=== PATIENT | female | born 2000 | race Caucasian/White ===

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

== ENCOUNTER 2022-11-25 12:23 | Emergency (ER) | payer OTHER, SELFPAY ==
[2022-11-25 12:25] VITALS: BP 127/81; PULSE 77; RESP 18; TEMP 36.2; O2SAT 100; BMI 22.6
--- NOTE | 2022-11-25 12:47 | EDS_ITS ---
HPI HPI - Female History of Present Illness Chief Complaint: Vag Bleeding Informant: patient Pain Pain: Positive for Pelvic Pain Onset: Yesterday Context: Gradual Onset Timing: Continuous Quality: Positive for Sharp Location: Suprapubic (more/worse to left) Current Severity: Moderate Maximum Severity: Moderate Worsened by: - (nothing) Relieved by: - (nothing, no prior treatments) Bleeding Issue: Positive for Vaginal bleeding Onset: Days (couple) Context: Gradual Onset Current Severity: Heavy Maximum Severity: Heavy Associated Symptoms Associated Symptoms: Positive for Frequency; Negative for Dysuria or Hematuria Test: - (hasn't done one prior to coming to ED today) Sexually: Positive for Active P: 0 Narrative Narrative: States she is having heavy abnormal vaginal bleeding, and concerned that she might be because her last menstrual cycle was abnormally light and short in duration, and she usually is regular, now bleeding heavily with some clots. She has not done a home test yet and never been before. She states she feels tired, having pelvic pain, it is diffuse but worse on the left, and some urinary frequency without dysuria. Her last normal menstrual cycle started on 09/19/2022, which was the one prior to the abnormal 1 she had this past month in October. [facility] Medical History Ovarian cyst Home Medications NK 11/25/22 [History Last Taken Unknown] Surgical History no surgical history Social History Smoking Status: Never smoker ROS ROS ED Constitutional Constitutional ED: Denies chills or fever(s) Eyes Eyes: Denies change in vision or diplopia ENT ENT ED: Denies rhinorrhea or sore throat Cardiovascular Cardiovascular: Denies chest pain or palpitations Respiratory/Chest Respiratory/Chest: Denies cough or dyspnea Gastrointestinal Gastrointestinal: Reports abdominal pain; Denies diarrhea, nausea or vomiting Genitourinary Genitourinary ED: Reports urinary frequency and vaginal bleeding; Denies dysuria or hematuria Musculoskeletal Musculoskeletal: Denies back pain or neck pain Integumentary Denies abscess or rash Neurologic Neurologic: Denies headache(s), paresthesias or weakness Psychiatric Psychiatric: Denies anxiety or suicidal thoughts EXAM Physical Exam Const Vital Signs: 11/25/22 12:25 Temperature 97.2 F L Temperature Source Temporal Pulse Rate 77 Respiratory Rate 18 Blood Pressure 127/81 H Blood Pressure Mean 96 Pulse Ox 100 Oxygen Delivery Method Room Air Positive well nourished and well developed Constitutional Narrative: Well-appearing, no distress General Appearance ED: well developed and NAD HEENT Reports moist mucous membranes normocephalic and atraumatic Eyes PERRL and EOMs intact bilaterally Neck full ROM and supple Resp normal respiratory effort and clear to auscultation bilaterally Cardio regular rate, regular rhythm and no murmurs Rate: Negative for tachycardic GI non-distended GI Narrative: Mild tenderness suprapubic, and bilateral medial lower pelvis areas. No guarding or rebound, no distention. Auscultation: normoactive bowel sounds Palpation: soft Speculum Exam - Vagina: vaginal bleeding Back/Spine no CVA tenderness General Back: other FROM Extremity normal to inspection General Extremety ED: Negative for edema, pulses abnormal or tenderness General Extremity: Negative for edema or pulses abnormal Neuro oriented x3, CN's II-XII intact bilaterally and no sensory deficits noted Sensorium / Orientation: awake and alert Motor Exam: strength 5/5 throughout Skin no rashes or lesions noted and no wounds MDM MDM MDM Narrative Medical decision making narrative: Urinalysis showing blood and no signs of acute infection, negative. Patient reassured, I suspect she had an abnormal cycle and now since the previous 1 was light this 1 is heavy, I do not think that she needs to be further evaluated for an emergent pelvic process such as torsion or tubo-ovarian abscess, she is not very tender clinically, her exam is very benign and she is very well-appearing with normal vital signs. Given an injection of Toradol and advised to follow-up with her INTERIOR DECORATOR as an outpatient if symptoms continue. Lab Data Attestation: I reviewed the patient's lab results. Labs: Laboratory Results - last 24 hr 11/25/22 12:40 Urine Color Yellow Urine Clarity Clear Urine pH 7.0 Ur Specific [place] 1.010 Urine Protein 15 H Urine Glucose (UA) Normal Urine Ketones Negative Urine Occult Blood 250 H Urine Nitrite Negative Urine Bilirubin Negative Urine Urobilinogen 1 H Ur Leukocyte Esterase 25 H Urine RBC 5-10 SEEN Urine WBC 5-10 SEEN Ur Squamous Epith Cells 0-5 SEEN Urine Bacteria 3+ Urine Mucus 0 SEEN Urine Test Negative Discharge Plan Triage Chief Complaint: Vag Bleeding ED Provider: Dung Cortez Dx/Rx/DC Orders Clinical Impression: Menorrhagia with regular cycle Instructions: ED Dysfunctional Uterine Bleeding Prescriptions: No Action NK Primary Care Provider: Care Physician,No Primary Referrals: INTERIOR DECORATOR, your [Other] - 3-5 Days if not improving Care Physician,No Primary [Primary Care Provider] - Disposition Disposition: Home, Self Care
[2022-11-25 13:08] LABS: Mucous, Urine 0 SEEN /hpf (<or=2+)
[2022-11-25 13:11] LABS: Glucose, Dipstick Normal (Normal); Ketone-Dipstick Negative (Negative); Leukocyte Esterase-Dipstick 25 /ul (Negative); Nitrite-Dipstick Negative (Negative); Occult Blood-Urine 250 /ul (Negative); Protein-Dipstick 15 mg/dl (Negative); Urine Bilirubin Dipstick Negative (Negative); Urine Urobilinogen 1 mg/dl (Normal)
[2022-11-25 13:12] LABS: Color, Urine Yellow (Yellow); Urine Clarity Clear (Clear)
[2022-11-25 13:15] LABS: Bacteria 3+ /hpf (None Seen); Internal QC Validated? YES +Cl - CLEAR BKGD; Pregnancy, Urine Negative Negative; Red Blood Cells-Urine 5-10 SEEN /hpf (0-5); Squamous Epithelial Cells - UA 0-5 SEEN /hpf (5-10); White Blood Cells 5-10 SEEN /hpf (0-5)
--- NOTE | 2022-11-25 13:38 | CM.ED ---
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 SW requested permission to speak with patient's guest present, patient agreed. SW inquired about patient's current insurance and PCP. Patient explained her insurance was [employer] from her job and declined Medicaid application. Patient reports no current PCP. SW provided patient with PCP list accepting new patients from patient's insurance website. Patient was receptive towards list. Patient's guest inquired about local counseling agency resource. SW provided patient's guest with list of local counseling agencies, Crisis information as well as Dr. Stephen mack and [address] card. No other needs voiced at this time. Sonia Dyer MSW, RAMOS
[2022-11-25 13:39] VITALS: BP 108/64; PULSE 59; RESP 16; O2SAT 99
== END 2022-11-25 13:51 | disposition home or self-care (01) ==
PROVIDERS: Emergency Provider Emergency Medicine; Visit Provider Emergency Medicine
DX: N92.0 Excessive and frequent menstruation with regular cycle (principal)
CPT/HCPCS: 81001; 81025; 96372; 99282

== ENCOUNTER 2022-12-31 13:35 | Emergency (ER) | payer OTHER, SELFPAY ==
[2022-12-31 13:36] VITALS: BP 110/70; PULSE 84; RESP 16; TEMP 36.4; O2SAT 100; BMI 22.4
--- NOTE | 2022-12-31 14:09 | CT_ITS ---
STUDY: CT Abdomen And Pelvis W/ Contrast Injection 12/31/2022 3:48 PM REASON FOR EXAM: Female, 22 years old. ABDOMINAL PAIN RLQ pain TECHNIQUE: Transaxial images were obtained without oral contrast, and with IV 100mL Isovue-370 intravenous contrast. Individualized dose optimization techniques were used for this CT. COMPARISON: None. FINDINGS: The visualized lung bases are unremarkable. The visualized portions of the heart are within normal limits. Unremarkable liver. Unremarkable gallbladder and extrahepatic biliary system. Unremarkable spleen. Unremarkable pancreas. Unremarkable bilateral adrenal glands. No acute findings of the right kidney. No acute findings of the left kidney. Unremarkable visualized stomach. Unremarkable small intestine. Unremarkable colon. The appendix is visualized and appears unremarkable. There are no acute findings of the abdominal aorta. Unremarkable inferior vena cava. Subcentimeter mesenteric lymph nodes. Unremarkable urinary bladder. There is trace free fluid in the pelvis. This can be physiologic. The uterus is normal in appearance. There are physiologic follicles or cysts of both ovaries. 47mm right ovary cyst. ACR White Paper guidelines (Queen, et. al. JACR 2020;17(2):248-254) suggest no follow-up is necessary. There is an umbilical hernia containing fat. Unremarkable osseous structures. CT/Abdomen/Pelvis W IV Cont ONLY IMPRESSION: (NOT LISTED IN ORDER OF SIGNIFICANCE) There is trace free fluid in the pelvis. This can be physiologic. The appendix is visualized and appears unremarkable. 47mm right ovary cyst. ACR White Paper guidelines (Queen, et. al. JACR 2020;17(2):248-254) suggest no follow-up is necessary. Other findings as above. Electronically Signed: Matthew Rojas MD at 15:51 EDT ,
--- NOTE | 2022-12-31 14:13 | ED.VIS.GI ---
HPI <ENRIQUE Fischer - Last Filed: 12/31/22 16:47> HPI - GI History of Present Illness Chief Complaint: Abd Pain Narrative Narrative: Patient presenting today with her grandmother for severe abdominal pain that started last night. States that she began to have pain around her umbilicus on Monday and is now having pain most pronounced in the right lower quadrant and some in the left lower quadrant. She states that she does have a history of severe pelvic and abdominal pain that is usually worsened around the time of her menstrual period, however this time it is worse and she states she has never had the pain around her umbilicus. She also reports that urinating worsens the abdominal pain. She is nauseous but denies vomiting. She has had a CT scan in the past which showed an ovarian cyst, she does not have a printed circuit board panels trimmer at this time. She also reports that she both her mother and grandmother have endometriosis. She denies any fever, chills, hematuria, diarrhea, and history of any abdominal surgeries. PFSH <ENRIQUE Fischer - Last Filed: 12/31/22 16:47> [facility] Medical History (Updated 12/31/22 @ 16:44 by ENRIQUE Fischer) Anxiety Ovarian cyst Home Medications dicyclomine 20 mg tablet 20 mg PO BID #10 tabs 12/31/22 [Rx Last Taken Unknown] ondansetron 4 mg disintegrating tablet 4 mg PO Q8H PRN PRN Nausea #10 tabs 12/31/22 [Rx Last Taken Unknown] Allergy/AdvReac Type Severity Reaction Status Date / Time No Known Allergies Allergy Verified 12/31/22 13:38 Surgical History (Updated 12/31/22 @ 14:49 by Lucia Orosco RN) Hx of tonsillectomy Social History Smoking Status: Never smoker ROS <ENRIQUE Fischer - Last Filed: 12/31/22 16:47> ROS ED Constitutional Constitutional ED: Denies chills, fever(s) or sweats Cardiovascular Cardiovascular: Denies chest pain or palpitations Respiratory/Chest Respiratory/Chest: Denies cough or dyspnea Gastrointestinal Gastrointestinal: Reports abdominal pain and nausea; Denies constipation, diarrhea or vomiting Genitourinary Genitourinary ED: Reports dysuria; Denies hematuria or urinary urgency Musculoskeletal Musculoskeletal: Denies arthralgias, back pain, myalgias or neck pain Integumentary Denies abscess, Abrasions or rash Neurologic Neurologic: Denies confusion, dizziness or paresthesias Psychiatric Psychiatric: Denies anxiety, depression, suicidal ideation or suicidal thoughts EXAM <ENRIQUE Fischer - Last Filed: 12/31/22 16:47> Physical Exam Const Vital Signs: 12/31/22 13:36 12/31/22 16:38 Temperature 97.5 F L Temperature Source Temporal Pulse Rate 84 74 Respiratory Rate 16 16 Blood Pressure 110/70 101/59 L Blood Pressure Mean 83 73 Pulse Ox 100 99 Oxygen Delivery Method Room Air Positive well nourished, well developed and no apparent distress General Appearance ED: well developed HEENT Reports normocephalic and head/scalp atraumatic Mouth ED: Yes moist mucous membranes normal Eyes PERRL and EOMs intact bilaterally Neck full ROM and supple Chest Wall inspection of chest normal Resp normal respiratory effort and clear to auscultation bilaterally Cardio regular rate and regular rhythm GI non-distended and no masses GI Narrative: Right lower quadrant tenderness to palpation as well as tenderness to palpation in the left lower quadrant and around the umbilicus. Palpation: Negative for guarding or rigid Back/Spine normal ROM and normal to inspection Extremity normal to inspection and full ROM Neuro oriented x3, CN's II-XII intact bilaterally, moves all extremities, no focal motor deficits and no sensory deficits noted Sensorium / Orientation: awake and alert Psych mental status grossly normal and thought process normal Skin no rashes or lesions noted and no wounds <Dr. Desean Mloina, - Last Filed: 12/31/22 16:50> Physical Exam Const Vital Signs: 12/31/22 13:36 12/31/22 16:38 Temperature 97.5 F L Temperature Source Temporal Pulse Rate 84 74 Respiratory Rate 16 16 Blood Pressure 110/70 101/59 L Blood Pressure Mean 83 73 Pulse Ox 100 99 Oxygen Delivery Method Room Air MDM <ENRIQUE Fischer - Last Filed: 12/31/22 16:47> MDM MDM Narrative Medical decision making narrative: Patient presenting today with abdominal pain that she has had since Monday. She states that it started around her umbilicus and is now most pronounced in her right lower quadrant. She does have a lot of tenderness to her right lower quadrant. She has been given Toradol and Zofran. Labs will be obtained to rule out leukocytosis, anemia, electrolyte abnormality, TROY, and elevated liver enzymes. CT of the abdomen and pelvis will be obtained to rule out appendicitis, colitis, biliary colic, pancreatitis, ovarian cyst, and other etiology. CT shows a small right ovarian cyst. UA obtained and does not show any infection. Patient does report a history of chronic abdominal pain that is worsened around the time of her menstrual period. Both her grandmother and her mother have a history of endometriosis, I suspect that patient could possibly have this as well given that her symptoms worsen around the time of her menstrual period. She has not followed up with a printed circuit board panels trimmer I have encouraged her to do that and have given her a referral. Also given her referral for Dr. Lynch in GI. On reexamination she states that she is feeling much better. She will be discharged home in stable condition and is comfortable with plan. She will be given prescriptions for Zofran and Bentyl. Lab Data Attestation: I reviewed the patient's lab results. Lab results narrative: CBC unremarkable, anion gap 4, AST 13, UA without any acute cystitis. Labs: Laboratory Results - last 24 hr 12/31/22 12/31/22 12/31/22 14:20 14:20 14:20 WBC 7.1 RBC 4.32 Hgb 13.7 Hct 39.9 MCV 92.4 MCH 31.7 MCHC 34.3 RDW Std Deviation 39.6 RDW Coeff of Luna 11.7 Plt Count 238 MPV 9.7 Immature Gran % (Auto) 0.100 Neut % (Auto) 59.3 Lymph % (Auto) 28.4 Whiteside % (Auto) 9.6 Eos % (Auto) 2.0 Baso % (Auto) 0.6 Absolute Neuts (auto) 4.2 Absolute Lymphs (auto) 2.01 Nucleated RBC % 0 Sodium 139 Potassium 3.5 Chloride 107 Carbon Dioxide 28.0 Anion Gap 4 L BUN 18 Creatinine 0.69 Estim Creat Clear Calc 98.14 Est GFR (MDRD) Af Amer 139 Est GFR (MDRD) Non-Af 115 BUN/Creatinine Ratio 26.2 H Glucose 104 Calcium 8.7 Total Bilirubin 0.70 AST 13 L ALT 16 Alkaline Phosphatase 52 Total Protein 7.1 Albumin 3.7 Globulin 3.4 Albumin/Globulin Ratio 1.1 Serum , Qual NEGATIVE Urine Color Urine Clarity Urine pH Ur Specific [place] Urine Protein Urine Glucose (UA) Urine Ketones Urine Occult Blood Urine Nitrite Urine Bilirubin Urine Urobilinogen Ur Leukocyte Esterase Urine RBC Urine WBC Ur Squamous Epith Cells Urine Bacteria Urine Mucus 12/31/22 14:20 WBC RBC Hgb Hct MCV MCH MCHC RDW Std Deviation RDW Coeff of Luna Plt Count MPV Immature Gran % (Auto) Neut % (Auto) Lymph % (Auto) Whiteside % (Auto) Eos % (Auto) Baso % (Auto) Absolute Neuts (auto) Absolute Lymphs (auto) Nucleated RBC % Sodium Potassium Chloride Carbon Dioxide Anion Gap BUN Creatinine Estim Creat Clear Calc Est GFR (MDRD) Af Amer Est GFR (MDRD) Non-Af BUN/Creatinine Ratio Glucose Calcium Total Bilirubin AST ALT Alkaline Phosphatase Total Protein Albumin Globulin Albumin/Globulin Ratio Serum , Qual Urine Color Yellow Urine Clarity Sl. Cloudy Urine pH 7.0 Ur Specific [place] 1.015 Urine Protein 30 H Urine Glucose (UA) Normal Urine Ketones Negative Urine Occult Blood 250 H Urine Nitrite Negative Urine Bilirubin Negative Urine Urobilinogen Normal Ur Leukocyte Esterase 25 H Urine RBC 25-50 SEEN Urine WBC 0-5 SEEN Ur Squamous Epith Cells 0-5 SEEN Urine Bacteria 1+ Urine Mucus RARE Radiography Diagnostic Testing: Clinical Impression(s) from Imaging Studies Abdomen/Pelvis CT 12/31/22 14:09 IMPRESSION: (NOT LISTED IN ORDER OF SIGNIFICANCE) There is trace free fluid in the pelvis. This can be physiologic. The appendix is visualized and appears unremarkable. 47mm right ovary cyst. ACR White Paper guidelines (Queen, et. al. JACR 2020;17(2):248-254) suggest no follow-up is necessary. Other findings as above. Electronically Signed: Matthew Rojas MD at 15:51 EDT , CT read and reviewed by attending ED physician <Dr. Desean Molina, DO - Last Filed: 12/31/22 16:50> MDM MDM Narrative Medical decision making narrative: Patient presenting today with abdominal pain that she has had since Monday. She states that it started around her umbilicus and is now most pronounced in her right lower quadrant. She does have a lot of tenderness to her right lower quadrant. She has been given Toradol and Zofran. Labs will be obtained to rule out leukocytosis, anemia, electrolyte abnormality, TROY, and elevated liver enzymes. CT of the abdomen and pelvis will be obtained to rule out appendicitis, colitis, biliary colic, pancreatitis, ovarian cyst, and other etiology. CT shows a small right ovarian cyst. UA obtained and does not show any infection. Patient does report a history of chronic abdominal pain that is worsened around the time of her menstrual period. Both her grandmother and her mother have a history of endometriosis, I suspect that patient could possibly have this as well given that her symptoms worsen around the time of her menstrual period. She has not followed up with a printed circuit board panels trimmer I have encouraged her to do that and have given her a referral. Also given her referral for Dr. Lynch in GI. On reexamination she states that she is feeling much better. She will be discharged home in stable condition and is comfortable with plan. She will be given prescriptions for Zofran and Bentyl. This patient was seen with a PA/AUDIO/VIDEO TECHNICIAN Individually assessed they patient including history and physical. I have reviewed everything on the chart that is available and agree with the documentation provided by the PA/AUDIO/VIDEO TECHNICIAN including discussion about the assessment, treatment plan, discussion, and return precautions. Patient presenting with abdominal pain. She does point to area above her umbilicus as well as bilateral pelvic pain. She is more tender in the right lower quadrant. Lab work was obtained and is within normal limits. Urinalysis negative for infection but shows occult blood. EGD negative. CT abdomen pelvis was obtained and shows a 47 mm right ovarian cyst. No other acute process found. Had a discussion with the patient who feels very strongly that she might have endometriosis given that her mother and grandmother both have it. Recommended follow-up with TECHNOLOGY DIRECTOR. She is also tells me that she has crampy pain all over abdominal pain at times. After discussion she requested some Zofran for home because she is out of this. She states he is currently not currently nauseous but does get nauseous from time to time. I offered her Bentyl as well for the crampy abdominal pain which was minimal to this. She is given a referral to gynecology and GI. Return precautions discussed Lab Data Labs: Laboratory Results - last 24 hr 12/31/22 12/31/22 12/31/22 14:20 14:20 14:20 WBC 7.1 RBC 4.32 Hgb 13.7 Hct 39.9 MCV 92.4 MCH 31.7 MCHC 34.3 RDW Std Deviation 39.6 RDW Coeff of [place] 11.7 Plt Count 238 MPV 9.7 Immature Gran % (Auto) 0.100 Neut % (Auto) 59.3 Lymph % (Auto) 28.4 [place] % (Auto) 9.6 Eos % (Auto) 2.0 Baso % (Auto) 0.6 Absolute Neuts (auto) 4.2 Absolute Lymphs (auto) 2.01 Nucleated RBC % 0 Sodium 139 Potassium 3.5 Chloride 107 Carbon Dioxide 28.0 Anion Gap 4 L BUN 18 Creatinine 0.69 Estim Creat Clear Calc 98.14 Est GFR (MDRD) Af Amer 139 Est GFR (MDRD) Non-Af 115 BUN/Creatinine Ratio 26.2 H Glucose 104 Calcium 8.7 Total Bilirubin 0.70 AST 13 L ALT 16 Alkaline Phosphatase 52 Total Protein 7.1 Albumin 3.7 Globulin 3.4 Albumin/Globulin Ratio 1.1 Serum , Qual NEGATIVE Urine Color Urine Clarity Urine pH Ur Specific [place] Urine Protein Urine Glucose (UA) Urine Ketones Urine Occult Blood Urine Nitrite Urine Bilirubin Urine Urobilinogen Ur Leukocyte Esterase Urine RBC Urine WBC Ur Squamous Epith Cells Urine Bacteria Urine Mucus 12/31/22 14:20 WBC RBC Hgb Hct MCV MCH MCHC RDW Std Deviation RDW Coeff of [place] Plt Count MPV Immature Gran % (Auto) Neut % (Auto) Lymph % (Auto) [place] % (Auto) Eos % (Auto) Baso % (Auto) Absolute Neuts (auto) Absolute Lymphs (auto) Nucleated RBC % Sodium Potassium Chloride Carbon Dioxide Anion Gap BUN Creatinine Estim Creat Clear Calc Est GFR (MDRD) Af Amer Est GFR (MDRD) Non-Af BUN/Creatinine Ratio Glucose Calcium Total Bilirubin AST ALT Alkaline Phosphatase Total Protein Albumin Globulin Albumin/Globulin Ratio Serum , Qual Urine Color Yellow Urine Clarity Sl. Cloudy Urine pH 7.0 Ur Specific [place] 1.015 Urine Protein 30 H Urine Glucose (UA) Normal Urine Ketones Negative Urine Occult Blood 250 H Urine Nitrite Negative Urine Bilirubin Negative Urine Urobilinogen Normal Ur Leukocyte Esterase 25 H Urine RBC 25-50 SEEN Urine WBC 0-5 SEEN Ur Squamous Epith Cells 0-5 SEEN Urine Bacteria 1+ Urine Mucus RARE Radiography Diagnostic Testing: Clinical Impression(s) from Imaging Studies Abdomen/Pelvis CT 12/31/22 14:09 IMPRESSION: (NOT LISTED IN ORDER OF SIGNIFICANCE) There is trace free fluid in the pelvis. This can be physiologic. The appendix is visualized and appears unremarkable. 47mm right ovary cyst. ACR White Paper guidelines (Queen, et. al. JACR 2020;17(2):248-254) suggest no follow-up is necessary. Other findings as above. Electronically Signed: Matthew Rojas MD at 15:51 EDT , Discharge Plan Triage Chief Complaint: Abd Pain ED Midlevel Provider: Nakia Rose ED Provider: Desean Molina Dx/Rx/DC Orders Clinical Impression: Abdominal pain, Pelvic pain, Ovarian cyst Instructions: Abdominal Pain, ED Ovarian Cyst Prescriptions: New ondansetron 4 mg tablet,disintegrating 4 mg PO Q8H PRN PRN (Reason: Nausea) Qty: 10 0RF dicyclomine 20 mg tablet 20 mg PO BID Qty: 10 0RF Primary Care Provider: Care Physician,No Primary Referrals: Josue Lynch DO [Med Staff - Active Staff] - 5-7 Days Camryn Lopez MD [Med Staff - Active Staff] - 5-7 Days Care Physician,No Primary [Primary Care Provider] - Activity Restrictions/Additional Instructions: Please follow-up with TECHNOLOGY DIRECTOR. Return for any worsening of symptoms. Disposition Disposition: Home, Self Care
[2022-12-31] MEDS: Ketorolac 15 MG/ML Vial IV (14:29)
[2022-12-31 14:34] LABS: Absolute Lymphocyte Count 2.01 X10^3/uL (0.83-4.51); Absolute Neutrophil Count 4.2 X10^3/uL (2.0-7.7); Basophil# 0.04 X10^3/uL; Basophil% 0.6 % (0-1); Eosinophil# 0.14 X10^3/uL; Hematocrit 39.9 % (37-47); Hemoglobin 13.7 g/dL (12.0-15.0); Lymphocyte # 2.01 X10^3/ul (0.83-4.51); Lymphocyte % 28.4 % (19-41); Mean Corp Hgb Conc 34.3 g/dL (32-36); Mean Corpuscular Hgb 31.7 pg (27.0-32.0); Mean Corpuscular Volume 92.4 fL (81-99); Mean Platelet Vol. 9.7 fl (6.2-12.0); Monocyte# 0.68 X10^3/uL; Monocyte% 9.6 % (0-10); NRBC Flagged by Analyzer 0 % (0-5); Neutrophil % 59.3 % (47-70); Platelet Count 238 K/mm3 (150-450); RBC Distribution Width CV 11.7 % (11.6-14.6); RBC Distribution Width SD 39.6 fl (35.1-43.9); Red Blood Count 4.32 M/mm3 (4.2-5.4); White Blood Count 7.1 K/mm3 (4.4-11.0)
[2022-12-31 14:42] LABS: Color, Urine Yellow (Yellow); Glucose, Dipstick Normal (Normal); Ketone-Dipstick Negative (Negative); Leukocyte Esterase-Dipstick 25 /ul (Negative); Nitrite-Dipstick Negative (Negative); Occult Blood-Urine 250 /ul (Negative); Protein-Dipstick 30 mg/dl (Negative); Specific Gravity, Urine 1.015 (1.002-1.030); Urine Bilirubin Dipstick Negative (Negative); Urine Clarity Sl. Cloudy (Clear); Urine Urobilinogen Normal (Normal)
[2022-12-31 14:46] LABS: Internal QC Validated? YES +Cl - CLEAR BKGD; Pregnancy, Serum, hCG Quali. NEGATIVE Negative
[2022-12-31 14:53] LABS: ALB/GLOB Ratio 1.1 RATIO (0.9-2.4); AST(SGOT) 13 U/L (15-37); Alanine Aminotransfer ALT/SGPT 16 U/L (13-56); Albumin, Serum 3.7 g/dL (3.2-5.0); Alkaline Phosphatase 52 U/L (45-117); Anion Gap 4 (5-15); BUN 18 mg/dL (7-18); BUN/Creat Ratio 26.2 RATIO (10-20); Calcium,Total 8.7 mg/dL (8.5-10.1); Chloride 107 mmol/L (98-107); Creatinine, Serum 0.69 mg/dL (0.55-1.02); EST Glomerular Filtration Rate 115 mL/min (>60); Est Glom Filt Rate - Afr Amer 139 mL/min (>60); Estimated Creatinine Clearance 98.14 ml/min; Globulin 3.4 g/dL (2.2-4.2); Glucose 104 mg/dL (74-106); Potassium 3.5 mmol/L (3.5-5.1); Protein, Total 7.1 g/dL (6.4-8.2); Sodium Level 139 mmol/L (136-145)
[2022-12-31 15:12] LABS: Bacteria 1+ /hpf (None Seen); Mucous, Urine RARE /hpf (<or=2+); Red Blood Cells-Urine 25-50 SEEN /hpf (0-5); Squamous Epithelial Cells - UA 0-5 SEEN /hpf (5-10); White Blood Cells 0-5 SEEN /hpf (0-5)
[2022-12-31] MEDS: Ondansetron 4 MG/2 ML Vial IV (16:08)
[2022-12-31 16:38] VITALS: BP 101/59; PULSE 74; RESP 16; O2SAT 99
== END 2022-12-31 17:02 | disposition home or self-care (01) ==
PROVIDERS: Physician Assistant; Emergency Provider Student in an Organized Health Care Education/Training Program; Visit Provider Student in an Organized Health Care Education/Training Program
DX: N83.201 Unspecified ovarian cyst, right side (principal); R10.813 Right lower quadrant abdominal tenderness; R11.0 Nausea; R10.2 Pelvic and perineal pain
CPT/HCPCS: 74177; 80053; 81001; 84703; 85025; 96374; 96375; 99283; Q9967; A4216; J2405

== ENCOUNTER → 2023-01-18 | Outpatient (CLI) | payer OTHER, SELFPAY ==
[2023-01-18 14:57] LABS: Erythrocyte Sedimentation Rate 5 mm/hr (0-30)
[2023-01-18 15:26] LABS: CRP < 2.90 mg/L (0.0-3.0)
[2023-01-20 13:07] LABS: Anti-Centromere B Ab <0.2 AI (0.0-0.9); Anti-Chromatin <0.2 AI (0.0-0.9); Anti-Jo <0.2 AI (0.0-0.9); Anti-Scleroderma-70 AB <0.2 AI (0.0-0.9); Anti-dsDNA Ab 1 IU/mL (0-9); RNP Ab <0.2 AI (0.0-0.9); SJOGREN'S Anti-SS-A test < 0.2 AI (0.0-0.9); SJOGREN'S Anti-SS-B test < 0.2 AI (0.0-0.9); Smith Ab <0.2 AI (0.0-0.9)
[2023-01-20 16:09] LABS: Endomysial Antibody IgA Negative (Negative); Immunoglobulin A 115 mg/dL (87-352); t-Transglutaminase IgA 6 U/mL (0-3)
== END | disposition home or self-care (01) ==
PROVIDERS: PCP Family Medicine; Referring Provider Nurse Practitioner Adult Health; Visit Provider Nurse Practitioner Adult Health
DX: R10.9 Unspecified abdominal pain (principal); R19.7 Diarrhea, unspecified
CPT/HCPCS: 36415; 82784; 83516; 85652; 86140; 86225; 86235; 86255

== ENCOUNTER 2024-01-03 17:18 | Emergency (ER) | payer BC, SELFPAY ==
[2024-01-03 17:19] VITALS: BP 159/98; PULSE 90; RESP 18; TEMP 36.6; O2SAT 98; BMI 21.7
--- NOTE | 2024-01-03 17:38 | ED.VIS.GI ---
HPI HPI - GI History of Present Illness Chief Complaint: Abd Pain Detail of Chief Complaint: Also URI symptoms. Informant: patient and parent Abdominal Pain/Flank Pain Onset: Today Context: Gradual Onset Timing: Continuous Quality: Dull Location: Epigastric Maximum Severity: Mild Worsened by: Nothing Relieved by: Nothing Nausea/Vomiting/Emesis GI Symptom: Positive for Nausea; Negative for Vomiting Severity: Mild Diarrhea/Melena/Hematochezia GI Symptom: Negative for Diarrhea, Melena or Hematochezia Associated Symptoms Associated Symptoms: Negative for Dysuria, Frequency, Hematuria or Urgency Narrative Narrative: Well-appearing 23-year-old female history of prior ovarian cyst. No prior abdominal surgery. Said a week ago she has an epigastric abdominal pain which resolved. At that time had nausea, vomiting diarrhea which she thought was a virus. Prior similar symptoms: Yes Recent Illness/Hospitalization: No PFSH PFSH Medical History Anxiety Ovarian cyst Home Medications ondansetron 4 mg disintegrating tablet 4 mg PO Q8H PRN PRN Nausea #14 tabs 12/31/22 [Rx Last Taken Unknown] Allergy/AdvReac Type Severity Reaction Status Date / Time No Known Allergies Allergy Verified 12/31/22 13:38 Family History Grandmother Anxiety Endometriosis Hypertension Diabetes Mother Endometriosis Thyroid disorder Surgical History Hx of tonsillectomy Social History Smoking Status: Never smoker alcohol intake: current substance use type: does not use what type of physical activity do you participate in: other ROS ROS ED ROS Narrative URI. Epigastric abdominal pain. Nausea. Vomiting and diarrhea a week ago since resolved. Review of Systems ROS Unobtainable: Denies due to encephalopathy Constitutional Constitutional ED: Denies chills or fever(s) ENT ENT ED: Reports rhinorrhea; Denies ear pain Cardiovascular Cardiovascular: Denies chest pain Respiratory/Chest Respiratory/Chest: Denies cough or dyspnea Gastrointestinal Gastrointestinal: Reports abdominal pain, diarrhea, nausea and vomiting; Denies constipation or melena Genitourinary Genitourinary ED: Denies dysuria or hematuria Musculoskeletal Musculoskeletal: Denies arthralgias, back pain, myalgias or neck pain Integumentary Denies abscess or Abrasions Neurologic Neurologic: Denies headache(s), paresthesias or weakness Psychiatric Psychiatric: Denies anxiety or depression Endocrine Endocrinology: Denies polydipsia Hematologic/Lymphatic Hematologic/Lymphatic: Denies easy bleeding, easy bruising or lymphadenopathy Allergic/Immunologic Allergic/Immunologic ED: Denies mouth swelling, tongue swelling or urticaria EXAM Physical Exam Narrative Exam Narrative: Well-appearing 23-year-old female. Vital signs stable afebrile. Pulse ox 90% on room air no signs hypoxia. H EENT exam posterior pharynx normal. Moist extremities. Clear rhinorrhea. Neck nontender no lymphadenopathy. Lungs clear to auscultation bilaterally. Heart regular rhythm rate about 90 no murmur. Chest wall nontender. Abdomen soft nondistended normal bowel sounds no peritoneal signs. No reproducible tenderness. Right upper quadrant lower quadrant unremarkable. No hernia or mass. No signs of obstruction. No signs of trauma. No reproducible epigastric pain. Moving all 4 extremities. Nontender no edema. Back nontender. Neurologically she is awake alert no focal motor deficits. Benign exam. Const Vital Signs: 01/03/24 17:19 Temperature 97.8 F Temperature Source Temporal Pulse Rate 90 Respiratory Rate 18 Blood Pressure 159/98 H Blood Pressure Mean 118 Pulse Ox 98 Oxygen Delivery Method Room Air Positive well nourished and well developed; Negative for obese, cachectic, contractures or unkempt General Appearance ED: well developed and NAD; Negative for unkempt, cachectic, contractures or pallor Nutritional Appearance: Negative for cachectic or obese HEENT Reports moist mucous membranes; Denies dry mucous membranes normocephalic and atraumatic; Negative for trauma or tenderness Mouth ED: No dry mucous membranes Mouth: No dry mucous membranes Eyes PERRL and EOMs intact bilaterally General Eye ED: Negative for pale conjunctiva or scleral icterus Neck no lymphadenopathy, supple and no JVD General: Negative for tenderness Resp normal respiratory effort and clear to auscultation bilaterally Effort and Inspection: Negative for respiratory distress Auscultation: Negative for rales, rhonchi or wheezes Cardio regular rate, regular rhythm, S1 normal heart sound, S2 normal heart sound and no murmurs Rate: Negative for bradycardia or tachycardic Rhythm: Negative for abnormal rhythm or other GI non-tender and no masses Inspection: Negative for abdominal distention Auscultation: normoactive bowel sounds Palpation: soft; Negative for tender, guarding or rebound tenderness present Back/Spine no CVA tenderness General Back: Negative for CVA tenderness Cervical Spine: Negative for cervical spine tenderness Thoracic Spine / Upper Back: Negative for thoracic spinal tenderness Lumbar Spine / Lower Back: Negative for lumbar spinal tenderness Coccyx: Negative for other Extremity full ROM General Extremety ED: Negative for edema or tenderness General Extremity: Negative for edema Neuro CN's II-XII intact bilaterally and moves all extremities Sensorium / Orientation: alert, oriented to person, oriented to place and oriented to time; Negative for orientation impaired, confused or lethargic Motor Exam: strength 5/5 throughout Psych mental status grossly normal and thought process normal Appearance: Negative for unkempt Attitude: No agitated Mood & Affect: Negative for depressed, anxious or tearful Skin General Skin Exam: Negative for jaundice or pallor Lesions: no lesions Rashes: no rashes Trauma: Negative for abrasion Nails: Negative for discolored MDM MDM MDM Narrative Medical decision making narrative: 23-year-old female URI symptoms. All benign. Epigastric abdominal discomfort with nausea vomiting diarrhea a week ago resolved now having epigastric pain today with nausea. Screening labs to be obtained. Abdominal exam is benign. She does not need imaging. Repeat exam patient doing well at 7:30 PM. Abdomen benign. She will be discharged home. Treated as a viral syndrome. History & Record Review Discussion w/independent historian: Patient Additional record(s) reviewed:: Prior inpatient record, Prior outpatient record, Prior ED visit and Prior labs Lab Data Attestation: I reviewed the patient's lab results. Lab results narrative: CBC normal. White count of 6. H&H of 13 and 39. Platelets 205. Electrolytes show sodium 141. Gap 5. BUN 20 creatinine 0.7. Glucose 98. Liver enzymes normal. Lipase normal at 39. Serum test negative. UA shows 10-25 white cells but is contaminated with 5-10 epithelial cells 1+ bacteria. No nitrites. She is not having any urinary symptoms I am not going to treat that. Labs: Laboratory Results - last 24 hr 01/03/24 01/03/24 18:03 18:46 WBC 6.1 RBC 4.38 Hgb 13.2 Hct 39.3 MCV 89.7 MCH 30.1 MCHC 33.6 RDW Std Deviation 39.6 RDW Coeff of Luna 12.1 Plt Count 205 MPV 9.8 Immature Gran % (Auto) 0.300 Neut % (Auto) 59.3 Lymph % (Auto) 23.3 Howard % (Auto) 13.8 H Eos % (Auto) 2.6 Baso % (Auto) 0.7 Absolute Neuts (auto) 3.6 Absolute Lymphs (auto) 1.43 Nucleated RBC % 0 Sodium 141 Potassium 4.2 Chloride 111 H Carbon Dioxide 25.0 Anion Gap 5 BUN 20 H Creatinine 0.70 Estim Creat Clear Calc 95.93 Est GFR (MDRD) Af Amer 135 Est GFR (MDRD) Non-Af 112 BUN/Creatinine Ratio 28.7 H Glucose 98 Calcium 8.9 Total Bilirubin 0.80 AST 15 ALT 20 Alkaline Phosphatase 47 Total Protein 6.9 Albumin 3.9 Globulin 3.0 Albumin/Globulin Ratio 1.3 Lipase 39 Serum , Qual NEGATIVE Urine Color Yellow Urine Clarity Sl. Cloudy Urine pH 5.0 Ur Specific Proctor 1.025 Urine Protein 30 H Urine Glucose (UA) Normal Urine Ketones Negative Urine Occult Blood 10 H Urine Nitrite Negative Urine Bilirubin 1 H Urine Urobilinogen 1 H Ur Leukocyte Esterase 500 H Urine RBC 0-5 SEEN Urine WBC 10-25 SEEN Ur Squamous Epith Cells 5-10 SEEN Urine Bacteria 1+ Urine Mucus 2+ Discharge Plan Triage Chief Complaint: Abd Pain ED Provider: Jesus Mackay Dx/Rx/DC Orders Clinical Impression: Viral syndrome, Abdominal pain Instructions: Abdominal Pain, ED URI, Viral, No Abx (Adult) Prescriptions: No Action ondansetron 4 mg tablet,disintegrating 4 mg PO Q8H PRN PRN (Reason: Nausea) Qty: 14 0RF Primary Care Provider: Ryan King Referrals: Ryan King, [Primary Care Provider] - 3-5 Days if not improving Activity Restrictions/Additional Instructions: Plenty of fluids and rest. Increase diet slowly as tolerated. Your labs today were normal. Motrin and/or Tylenol for any pain. Follow-up with your doctor if not improving or return if a lot worse. I suspect this is a virus and you should progressively improve. Disposition Disposition: Home, Self Care
[2024-01-03 18:13] LABS: Absolute Lymphocyte Count 1.43 X10^3/uL (0.83-4.51); Absolute Neutrophil Count 3.6 X10^3/uL (2.0-7.7); Basophil# 0.04 X10^3/uL; Basophil% 0.7 % (0-1); Eosinophil# 0.16 X10^3/uL; Eosinophils% 2.6 % (0-5); Hematocrit 39.3 % (37-47); Hemoglobin 13.2 g/dL (12.0-15.0); Lymphocyte # 1.43 X10^3/ul (0.83-4.51); Lymphocyte % 23.3 % (19-41); Mean Corp Hgb Conc 33.6 g/dL (32-36); Mean Corpuscular Hgb 30.1 pg (27.0-32.0); Mean Corpuscular Volume 89.7 fL (81-99); Mean Platelet Vol. 9.8 fl (6.2-12.0); Monocyte# 0.85 X10^3/uL; Monocyte% 13.8 % (0-10); NRBC Flagged by Analyzer 0 % (0-5); Neutrophil # 3.64 X10^3/uL (2.7-7.7); Neutrophil % 59.3 % (47-70); Platelet Count 205 K/mm3 (150-450); RBC Distribution Width CV 12.1 % (11.6-14.6); RBC Distribution Width SD 39.6 fl (35.1-43.9); Red Blood Count 4.38 M/mm3 (4.2-5.4); White Blood Count 6.1 K/mm3 (4.4-11.0)
[2024-01-03 18:28] LABS: Internal QC Validated? YES +Cl - CLEAR BKGD; Pregnancy, Serum, hCG Quali. NEGATIVE Negative
[2024-01-03 18:37] LABS: ALB/GLOB Ratio 1.3 RATIO (0.9-2.4); AST(SGOT) 15 U/L (15-37); Alanine Aminotransfer ALT/SGPT 20 U/L (13-56); Albumin, Serum 3.9 g/dL (3.2-5.0); Alkaline Phosphatase 47 U/L (45-117); Anion Gap 5 (5-15); BUN 20 mg/dL (7-18); BUN/Creat Ratio 28.7 RATIO (10-20); Calcium,Total 8.9 mg/dL (8.5-10.1); Chloride 111 mmol/L (98-107); EST Glomerular Filtration Rate 112 mL/min (>60); Est Glom Filt Rate - Afr Amer 135 mL/min (>60); Estimated Creatinine Clearance 95.93 ml/min; Glucose 98 mg/dL (74-106); Lipase 39 U/L (13-75); Potassium 4.2 mmol/L (3.5-5.1); Protein, Total 6.9 g/dL (6.4-8.2); Sodium Level 141 mmol/L (136-145)
[2024-01-03 19:03] LABS: Color, Urine Yellow (Yellow); Glucose, Dipstick Normal (Normal); Ketone-Dipstick Negative (Negative); Leukocyte Esterase-Dipstick 500 /ul (Negative); Nitrite-Dipstick Negative (Negative); Occult Blood-Urine 10 /ul (Negative); Protein-Dipstick 30 mg/dl (Negative); Specific Gravity, Urine 1.025 (1.002-1.030); Urine Clarity Sl. Cloudy (Clear); Urine Urobilinogen 1 mg/dl (Normal)
[2024-01-03 19:05] LABS: Urine Bilirubin Dipstick 1 mg/dL (Negative)
[2024-01-03 19:08] LABS: White Blood Cells 10-25 SEEN /hpf (0-5)
[2024-01-03 19:09] LABS: Bacteria 1+ /hpf (None Seen); Mucous, Urine 2+ /hpf (<or=2+); Red Blood Cells-Urine 0-5 SEEN /hpf (0-5); Squamous Epithelial Cells - UA 5-10 SEEN /hpf (5-10)
[2024-01-03 20:06] VITALS: BP 103/60; BP 103/63; PULSE 60; RESP 16; TEMP 36.6; O2SAT 94
== END 2024-01-03 20:11 | disposition home or self-care (01) ==
PROVIDERS: Emergency Provider Emergency Medicine; PCP Family Medicine; Visit Provider Emergency Medicine
DX: B34.9 Viral infection, unspecified (principal); R10.13 Epigastric pain; R19.7 Diarrhea, unspecified; R11.2 Nausea with vomiting, unspecified
CPT/HCPCS: 80053; 81001; 83690; 84703; 85025; 99283; A4216